=== PATIENT | female | born 1950 | race American Indian/Alaskan Native ===

== ENCOUNTER 2018-01-12 06:30 | Day surgery (SDC) | payer MEDICARE ==
[2018-01-08 10:56] VITALS: BMI 24.6
[2018-01-12 07:13] LABS: BASO # 0.03 K/mm3 (0.0-2.0); BASO % 0.7 % (0.0-3.0); EOS # 0.1 (0.0-0.7); EOS % 2.9 % (1.5-5.0); GRAN # 2.09 (1.4-6.5); HEMOGLOBIN 10.2 g/dL (12.0-16.0); INR 0.97 (0.93-1.08); LYMPH # 1.8 (1.2-3.4); LYMPH % 39.9 % (22.0-35.0); MEAN CELL VOLUME 89.3 fl (80.0-105.0); MEAN CORPUSCULAR HGB CONC 31.4 g/dl (31.0-37.0); MEAN PLATELET VOLUME 9.8 fl (7.0-11.0); MONO # 0.4 (0.1-0.6); MONO % 9.5 % (1.0-6.0); PARTIAL THROMBOPLASTIN TIME 30.6 Seconds (25.1-36.5); PROTHROMBIN TIME 11.1 SECONDS (9.4-12.5); RBC 3.64 10^6/uL (3.5-6.1); RED CELL DISTRIBUTION WIDTH 14.7 % (11.5-14.5); WHITE BLOOD COUNT 4.4 10^3/ul (4.5-11.0)
[2018-01-12 07:14] LABS: BLOOD UREA NITROGEN 9 mg/dL (7-21); CALCIUM 9.6 mg/dL (8.4-10.5); GFR NON-AFRICAN AMERICAN > 60; HDL CHOLESTEROL 49 mg/dL (29-60)
[2018-01-12 07:24] LABS: LDL CHOLESTEROL 140 mg/dL (0-129)
[2018-01-12] MEDS ORDERED: Lidocaine 2% Inj (20ml) ONE (09:09)
[2018-01-12] MEDS ORDERED: Midazolam 2 MG/2 ML VIAL ONE (09:29)
[2018-01-12] MEDS ORDERED: Sodium Chloride 0.9% 1,000 ML IV SCH (10:00)
[2018-01-12 11:32] VITALS: RESP 18
[2018-01-12 12:02] VITALS: BP 118/59; PULSE 58; TEMP 98; O2SAT 97
--- NOTE | 2018-01-12 15:48 | CARDCATH ---
PROCEDURE DATE: 01/12/2018 CARDIAC SYSTEM SOFTWARE DEVELOPER PROCEDURE NOTE PROCEDURE: Removal of loop recorder. GROUND WATER PUMP INSTALLER: Shruthi Heard. BRIEF CLINICAL HISTORY: This 67-year-old female with past medical history significant for hypertension, hyperlipidemia, palpitation, history of loop recorder because of recurrent palpitations, multiple. Holter was negative. Patient underwent loop recorder and this was essentially negative. The patient reached the end of life of loop recorder. The patient is admitted today for removal of loop recorder. PROCEDURE IN DETAIL: Patient was brought to the medical lab assistant, prepped and draped in sterile standard fashion. A 2% lidocaine was given after identified the position of loop recorder with fluoro and then, 0.5 cm incision was made and then loop recorder held with the Virgen forceps and the scar tissue was freed and then, subsequently removed. Then, the incision site was closed with 2-0 Vicryl and then Dermabond applied. Patient tolerated the procedure well, returned to the floor in stable condition. Plan is to follow up in 1 week. Lesly Cabrales MD
--- NOTE | 2018-01-12 16:08 | CPOSTOP ---
DATE: 01/12/2018 PHYSICIAN: Lesly Cabrales MD WINDOW TREATMENT INSTALLER: Jacquelinenelson Heard. TYPE OF ANESTHESIA: Moderate conscious sedation. Total dose given 2 mg of Versed, 100 of fentanyl, periodically started at 1 mg of Versed, 50 of fentanyl. PRE-PROCEDURE DIAGNOSES: Palpitation, end of the life of loop recorder. PROCEDURE PERFORMED: Removal of loop recorder,[employer]. FINDINGS: Successful removal of loop recorder. FINAL DIAGNOSIS: End of the life of loop recorder. POST PROCEDURE CONDITION: The patient is stable. VASCULAR ACCESS SITE: Left side of the chest, 0.5 cm incision was made for removal of loop recorder. CLOSURE DEVICE: None. RADIATION DOSE: 67.38 matias alves unit. FLUORO TIME: 0.3 minute. Lesly Cabrales MD MTD
--- NOTE | 2018-01-12 16:24 | HP ---
REASON FOR ADMISSION: Removal of loop recorder implant in 05/2016. BRIEF CLINICAL HISTORY: A 67-year-old female with past medical history of hypertension, palpitations, hyperlipidemia, complaining of multiple episodes of palpitation. Holter monitor was negative, so the patient was started on atenolol, loop recorder was implanted. Now, loop recorder reached end of the life, so the patient is admitted for removal of the loop recorder. The patient denies any chest pain, shortness of breath or any palpitations. PAST MEDICAL HISTORY: Significant for hypertension, hyperlipidemia, gastroesophageal reflux. SOCIAL HISTORY: She denies any history of alcohol abuse. CARDIAC WORKUP: The patient had a loop recorder implantation in 05/2016, multiple interrogations, no arrhythmia noted. Now, reached end of life on 12/26/2017, so the patient is here for loop recorder removal. CURRENT MEDICATIONS: The patient is taking at home, multivitamin, Robaxin, omeprazole, Tenormin 50 mg twice a day, aspirin 81 mg daily. REVIEW OF SYSTEMS: As per HPI. PHYSICAL EXAMINATION: VITAL SIGNS: As follows, height of the patient was 5 feet 5 inches. Weight of the patient was 148 pounds. Body mass index 24.6 kg/m2. Rest of the examination as follows, heart rate is 60, blood pressure 110/60. HEENT: PERRLA, intact. NECK: Supple. No carotid bruit or thyromegaly. CHEST: Clear to auscultation. HEART: S1 and S2, regular. ABDOMEN: Soft. EXTREMITIES: Clubbing and cyanosis negative. IMPRESSION: Recurrent palpitations, but no arrhythmia on loop recorder. End of the life of loop recorder, status post implantation of loop recorder in 05/2016, hypertension. PLAN: Removal of the loop recorder, further recommendation after the loop recorder removal. Thank you, Dr. Hollis, for providing us the opportunity in taking care of the patient, Sangeeta Sanchez. Lesly Cabrales MD [facility]
--- NOTE | 2018-01-13 15:19 | CARD ---
APPROVED REPORT EKG Measurement Heart [id number] ID [id number] <Conclusion> Sinus bradycardia Otherwise normal ECG
== END 2018-01-12 12:02 | disposition home or self-care (01) ==
LOC: SDSVAS 06:30
PROVIDERS: ATTEND Internal Medicine Cardiovascular Disease
DX: R00.2 Palpitations (principal); E78.5 Hyperlipidemia, unspecified; I10 Essential (primary) hypertension; K21.9 Gastro-esophageal reflux disease without esophagitis
CPT/HCPCS: 33284; 36415; 80048; 80061; 85025; 85610; 85730; 86850; 86900; 93005; 99152; J0690; J2250; J3010; J7040 ×2; J7120